=== PATIENT | female | born 1960 | race African-American/Black ===

== ENCOUNTER 2019-10-08 10:12 | Emergency (ER) | payer BC ==
--- NOTE | 2019-10-08 10:44 | EDM.PDOC ---
ED HPI GENERAL MEDICAL PROBLEM - General Chief Complaint: Wound Recheck Stated Complaint: BRUISE ON LEFT LEG Time Seen by Provider: 10/08/19 10:23 Source of Information: Reports: Patient History Limitations: Reports: No Limitations - History of Present Illness INITIAL COMMENTS - FREE TEXT/NARRATIVE: The patient presents with left leg ecchymosis and swelling. This started a few days ago. She does not recall an injury. She had a stent placed in her left leg for peripheral artery disease on September 28. She has had no troubles since then. She is on plavix. She has some pain over the area in her mid inner thigh. She has some edema there. She has no chest pain or shortness of breath. She has no history of DVT or PE. Onset: Gradual Duration: Day(s): Location: Reports: Lower Extremity, Left Quality: Reports: Ache Severity: Mild Improves with: Reports: None Worsens with: Reports: None Associated Symptoms: Reports: No Other Symptoms - Related Data Allergies Allergy/AdvReac Type Severity Reaction Status Date / Time shellfish derived Allergy Swelling Verified 10/08/19 10:21 Home Meds: Home Meds Aspirin 81 mg PO DAILY 10/08/19 [History] Clopidogrel [Plavix] 75 mg PO DAILY 10/08/19 [History] Metoprolol Tartrate 50 mg PO DAILY 10/08/19 [History] Spironolactone [Aldactone] 25 mg PO DAILY 10/08/19 [History] amLODIPine/Valsartan [Exforge 10-320 MG] 1 tab PO DAILY 10/08/19 [History] atorvaSTATin [Lipitor] 40 mg PO DAILY 10/08/19 [History] hydroCHLOROthiazide [Hydrochlorothiazide] 25 mg PO DAILY 10/08/19 [History] Past Medical History Cardiovascular History: Reports: Blood Clots/VTE/DVT - Past Surgical History Cardiovascular Surgical History: Reports: Other (See Below) Other Cardiovascular Surgeries/Procedures: stent Female Surgical History: Reports: D&C Social & Family History - Family History Family Medical History: Noncontributory - Tobacco Use Smoking Status *Q: Current Every Day Smoker Years of Tobacco use: 40 Packs/Tins Daily: 0.5 - Caffeine Use Caffeine Use: Reports: Coffee - Recreational Drug Use Recreational Drug Use: No ED ROS GENERAL - Review of Systems Review Of Systems: See Below Constitutional: Reports: No Symptoms HEENT: Reports: No Symptoms Respiratory: Reports: No Symptoms Cardiovascular: Reports: No Symptoms Endocrine: Reports: No Symptoms GI/Abdominal: Reports: No Symptoms : Reports: No Symptoms Musculoskeletal: Reports: Other (Left mid thigh ecchymosis, swelling and pain) ED EXAM, SKIN/RASH Exam: See Below Exam Limited By: No Limitations General Appearance: Alert, No Apparent Distress Ears: Normal External Exam Nose: Normal Inspection Head: Atraumatic, Normocephalic Neck: Normal Inspection Respiratory/Chest: No Respiratory Distress, Lungs Clear, Normal Breath Sounds Cardiovascular: Regular Rate, Rhythm, No Edema, No Murmur GI/Abdominal: Soft, Non-Tender, No Organomegaly, No Mass Extremities: Other (Ecchymosis to the left mid inner thigh with pain upon palpation and some swelling. Good sensation and faint pulses distally.) Course - Vital Signs Last Recorded V/S: Last Vital Signs Temp 97.9 F 10/08/19 10:17 Pulse 110 H 10/08/19 10:17 Resp 16 10/08/19 10:17 BP 188/100 H 10/08/19 10:17 Pulse Ox 98 10/08/19 10:17 - Orders/Labs/Meds Orders: Active Orders 24 hr Category Date Time Status VL Duplex Lwr Ext Veins Ltd Lt [US] Stat Exams 10/08/19 10:36 Ordered - Re-Assessments/Exams Free Text/Narrative Re-Assessment/Exam: 10/08/19 10:43 I have ordered an US of her left leg. 10/08/19 11:35 Her US looks good. I am not sure what caused the ecchymosis to her leg. I will have her follow up with her doctor this week. Departure - Departure Time of Disposition: 11:35 Disposition: Home, Self-Care 01 Condition: Good Clinical Impression: Superficial bruising of lower leg Qualifiers: Encounter type: initial encounter Laterality: left Qualified Code(s): S80.12XA - Contusion of left lower leg, initial encounter - Discharge Information *PRESCRIPTION DRUG MONITORING PROGRAM REVIEWED*: Not Applicable *COPY OF PRESCRIPTION DRUG MONITORING REPORT IN PATIENT MADELINE: Not Applicable Referrals: PCP,Unknown [Primary Care Provider] - Forms: ED Department Discharge Additional Instructions: Continue taking your medications as prescribed. Ice the area for 15 minutes 3 times per day for 2 days. Follow up with your doctor within a week. Please return if you are worse. Sepsis Event Note - Evaluation Sepsis Screening Result: No Definite Risk - Focused Exam Vital Signs: Vital Signs Temp Pulse Resp BP Pulse Ox 10/08/19 10:17 97.9 F 110 H 16 188/100 H 98 Date Exam was Performed: 10/08/19 Time Exam was Performed: 11:34 - My Orders Last 24 Hours: My Active Orders 10/08/19 10:36 VL Duplex Lwr Ext Veins Ltd Lt [US] Stat - Assessment/Plan Last 24 Hours: My Active Orders 10/08/19 10:36 VL Duplex Lwr Ext Veins Ltd Lt [US] Stat
--- NOTE | 2019-10-08 12:21 | US ---
Left lower extremity deep venous ultrasound: Duplex and color flow imaging was obtained of the left common femoral, superficial femoral, greater saphenous, popliteal, posterior tibial and peroneal veins. Findings: Images were obtained of the soft tissues in area of left thigh bruising. No soft tissue hematoma is seen. No subcutaneous edema is noted. Normal phasic flow, augmentation and compression are seen. Impression: 1. No evidence of deep venous thrombosis within left lower extremity. 2. No soft tissue abnormality is seen in area of left thigh bruising. Diagnostic code #1 Study was dictated in [place] Standard Time
== END 2019-10-08 11:43 | disposition home or self-care (01) ==
LOC: JD.ED 10:12
DX: S80.12XA Contusion of left lower leg, initial encounter (principal); F17.210 Nicotine dependence, cigarettes, uncomplicated; Z79.82 Long term (current) use of aspirin; Z79.01 Long term (current) use of anticoagulants; Z79.899 Other long term (current) drug therapy; Z86.718 Personal history of other venous thrombosis and embolism; Z91.013 Allergy to seafood; X58.XXXA Exposure to other specified factors, initial encounter
CPT/HCPCS: 93971-26-LT; 93971-LT; 99282; 99283-25